=== PATIENT | female | born 1970 | race Hispanic/Latino ===

== ENCOUNTER 2017-04-12 11:39 | Emergency (ER) | payer MEDICAID ==
[2017-04-12 11:47] VITALS: TEMP 97.9
[2017-04-12] MEDS ORDERED: Iohexol 240 (50 ml) ONE (12:04)
[2017-04-12] MEDS ORDERED: Iohexol 240 (50 ml) PO ONE (12:06)
--- NOTE | 2017-04-12 12:12 | ED PDOC ---
HPI: Abdomen Time Seen by Provider: 04/12/17 11:56 Chief Complaint (Nursing): Abdominal Pain Chief Complaint (Provider): abdominal pain History Per: Patient History/Exam Limitations: no limitations Onset/Duration Of Symptoms: Other (chronic ) Outside of [place] travel?: No Location Of Pain/Discomfort: Periumbilical Associated Symptoms: Nausea. denies: Fever, Chills, Vomiting, Diarrhea Additional Complaint(s): Kim Rodriguez is a 46 year old female, with a previous medical history of peptic ulcer disease, celiac disease and bipolar disorder, who presents to the ED with complaints of chronic abdominal pain associated with nausea worsening since this morning. Patient denies any vomiting, diarrhea, fever or chills. PMD: none provided Abnormal Vaginal Bleeding: No Past Medical History Reviewed: Historical Data, Nursing Documentation, Vital Signs Vital Signs: Last Vital Signs Temp 97.9 F 04/12/17 17:02 Pulse 64 04/12/17 17:02 Resp 16 04/12/17 17:02 BP 113/63 04/12/17 17:02 Pulse Ox 98 04/12/17 17:02 - Medical History PMH: Bipolar Disorder Other PMH: celiac disease, peptic ulcer disease - Family History Family History: States: Unknown Family Hx - Home Medications Home Medications: Ambulatory Orders Medication Instructions Recorded Dicyclomine [Dicyclomine HCl] 10 mg PO Q8 #10 cap 04/12/17 Pantoprazole Sodium [Protonix] 40 mg PO DAILY #30 tablet. 04/12/17 - Allergies Allergies/Adverse Reactions: Allergies Allergy/AdvReac Type Severity Reaction Status Date / Time No Known Allergies Allergy Verified 04/12/17 11:41 Review of Systems ROS Statement: Except As Marked, All Systems Reviewed And Found Negative Constitutional: Negative for: Fever, Chills Gastrointestinal: Positive for: Nausea, Abdominal Pain. Negative for: Vomiting , Diarrhea Physical Exam - Reviewed Nursing Documentation Reviewed: Yes Vital Signs Reviewed: Yes - Physical Exam Appears: Positive for: Well, Non-toxic, No Acute Distress Cardiovascular/Chest: Positive for: Regular Rate, Rhythm Respiratory: Positive for: CNT, Normal Breath Sounds Gastrointestinal/Abdominal: Positive for: Bowel Sounds, Soft, Tenderness ( periumbilical). Negative for: Mass, Guarding, Rebound Neurologic/Psych: Positive for: Alert, Oriented - Laboratory Results Result Diagrams: 04/12/17 12:00 04/12/17 12:00 - ECG O2 Sat by Pulse Oximetry: 96 (RA) Pulse Ox Interpretation: Normal Medical Decision Making Medical Decision Making: Initial Impression: Abdominal Pain Initial Plan: * CT abd pelvic w/ PO and IV contrast * labs * urine * urine dipstick * bentyl * omnipaque * reevaluation Scribe Attestation: Documented by Bethany Linares, acting as a scribe for Joshua Martinez MD. Provider Scribe Attestation: All medical record entries made by the Scribe were at my direction and personally dictated by me. I have reviewed the chart and agree that the record accurately reflects my personal performance of the history, physical exam, medical decision making, and the department course for this patient. I have also personally directed, reviewed, and agree with the discharge instructions and disposition. Disposition - Clinical Impression Clinical Impression: Gastritis - Patient ED Disposition Is Patient to be Admitted: No - Disposition Disposition: Routine/Home Disposition Time: 17:29 Condition: FAIR Prescriptions: Dicyclomine [Dicyclomine HCl] 10 mg PO Q8 #10 cap Pantoprazole Sodium [Protonix] 40 mg PO DAILY #30 tablet. Instructions: Gastritis (ED)
[2017-04-12 12:27] LABS: BASO # 0.1 K/uL (0.0-0.2); BASO % 1.1 % (0.0-2.0); EOS # 0.1 K/uL (0.0-0.7); EOS % 1.3 % (0.0-4.0); HEMATOCRIT 41.3 % (34.0-47.0); LYMPH # 1.5 K/uL (1.0-4.3); LYMPH % 23.7 % (20.0-40.0); MEAN CELL VOLUME 92.5 fl (81.0-99.0); MEAN CORPUSCULAR HEMOGLOBIN 31.7 pg (27.0-31.0); MEAN CORPUSCULAR HGB CONC 34.3 g/dL (33.0-37.0); MONO # 0.5 K/uL (0.0-0.8); MONO % 8.4 % (0.0-10.0); NEUT # 4.2 K/uL (1.8-7.0); NEUT % 65.5 % (50.0-75.0); RED CELL DISTRIBUTION WIDTH 13.2 % (11.5-14.5); WHITE BLOOD COUNT 6.5 K/uL (4.8-10.8)
[2017-04-12 12:33] LABS: ALB/GLOB RATIO 1.5 (1.0-2.1); ALKALINE PHOSPHATASE 67 U/L (38-126); ALT/SGPT 153 U/L (9-52); AST/SGOT 197 U/L (14-36); BILIRUBIN,TOTAL 0.7 mg/dl (0.2-1.3); BLOOD UREA NITROGEN 18 mg/dl (7-17); CALCIUM 9.5 mg/dL (8.4-10.2); CARBON DIOXIDE 24 mmol/L (22-30); CHLORIDE 106 mmol/L (98-107); GFR AFRICAN-AMERICAN > 60; GLUCOSE,RANDOM 99 mg/dL (65-105); POTASSIUM 4.2 MMOL/L (3.6-5.0); SODIUM 140 mmol/l (132-148)
[2017-04-12] MEDS ORDERED: Iohexol 300 100 ML IJ ONE (15:59)
[2017-04-12] MEDS ORDERED: Sodium Chloride 0.9% 50 ML IV ONE (16:00)
[2017-04-12 17:05] VITALS: BP 113/63; PULSE 64; RESP 16
--- NOTE | 2017-04-12 17:20 | CT ---
PROCEDURE: CT abdomen pelvis dated 04/12/2017. HISTORY: abd pain COMPARISON: None. TECHNIQUE: Contiguous axial images of the abdomen and pelvis following the oral and intravenous injection of approximately 98 cc Omnipaque 300 contrast material. . . Coronal and Sagittal reformats generated. Radiation dose: Total exam DLP = 1401.39 mGy-cm. This CT exam was performed using one or more of the following dose reduction techniques: Automated exposure control, adjustment of the mA and/or kV according to patient size, and/or use of iterative reconstruction technique. FINDINGS: LOWER THORAX: Small hiatal hernia with slight wall thickening of the distal esophagus that could be due to protrusion gastric mucosa. Esophagitis not excluded. Lung bases clear. No infiltrate effusion or basilar pneumothorax. Heart size within range of normal. No evidence of pericardial effusion. LIVER: Liver is mildly enlarged measuring nearly 19 cm in CC dimension. Mild diffuse fatty hepatic infiltration. There is small elliptical shaped vague area of low attenuation left lobe liver measuring approximately 11 mm too small to characterize though this could represent a small hemangioma. Followup interval could be performed to assess stability. Portal and splenic veins are opacified. GALLBLADDER AND BILE DUCTS: Gallbladder is physiologically distended. . There is a small peripherally calcified gallbladder calculus. PANCREAS: Visualized portions of the pancreas appear grossly unremarkable. SPLEEN: Spleen exhibits normal size and attenuation pattern without mass collection or calcification. ADRENALS: No adrenal lesions. . KIDNEYS AND URETERS: Kidneys demonstrate symmetric nephrograms. No evidence of nephrolithiasis or hydronephrosis. BLADDER: The urinary bladder is incompletely distended which presumably accounts for thick-walled appearance. Cystitis not excluded. REPRODUCTIVE: Questionable fundal fibroid. APPENDIX: Normal-appearing appendix of best seen on axial image number [id number]. No periappendiceal inflammatory changes. BOWEL: The evaluation of the bowel is limited due to incomplete opacification. The stomach is in the distended with oral contrast material. Visualized loops of small bowel exhibit normal contour and caliber. No evidence of acute mechanical small bowel obstruction. Oral contrast material has extended into the colon to the level of the distal descending/hepatic flexure junction. Moderate amount of stool is seen within the cecum ascending and transverse colon consistent with mild constipation. The main PE PERITONEUM: Unremarkable. No fluid collection. No free air. Small fat containing umbilical hernia. LYMPH NODES: No significant/bulky adenopathy. VASCULATURE: Unremarkable. No abdominal aortic aneurysm. BONES: Minor degenerative spondylosis involving a few lower thoracic and upper segments. The. Mild degenerative spondylosis L5-S1 level noted as well. No acute compression fractures. OTHER FINDINGS: None. IMPRESSION: Small low-attenuation focus left lobe liver as above. This could represent a small hemangioma. Followup interval could be performed to assess stability. Mild fatty hepatic infiltration. Cholelithiasis. Findings suggest constipation. Questionable fundal fibroid. Evaluation of the urinary bladder is limited due to the nondistention. Small fat containing umbilical hernia.
[2017-04-12 17:30] VITALS: O2SAT 96
== END 2017-04-12 18:31 | disposition home or self-care (01) ==
LOC: H.ER 11:39
DX: K29.70 Gastritis, unspecified, without bleeding (principal); Z86.59 Personal history of other mental and behavioral disorders; Z87.11 Personal history of peptic ulcer disease

== ENCOUNTER 2017-04-12 23:17 | Emergency (ER) | payer MEDICAID ==
[2017-04-12 23:20] VITALS: BP 123/78; PULSE 96; RESP 16; O2SAT 100
[2017-04-12 23:21] VITALS: TEMP 98.1
--- NOTE | 2017-04-12 23:51 | ED PDOC ---
HPI: Abdomen Time Seen by Provider: 04/12/17 23:20 Chief Complaint (Nursing): Abdominal Pain Chief Complaint (Provider): abdominal pain History Per: Patient (46 y/o female h/o gastritis/gastric ulcer/celiac sprue recently seen today for abdominal pain 12hours ago. CT demonstrates mild constipation. Patient has h/o fatty liver and mild elevation of LFT noted. Denies any vomiting/diarrhea/fevers/chills. States abdominal pain became worse prior to ED arrival. Patient notes improvement while waiting to be seen by ED but requests medication in ED for assistance. Admits to drinking etoh yesterday. Denies any abdominal surgeries.) Past Medical History Reviewed: Historical Data, Nursing Documentation, Vital Signs Vital Signs: Last Vital Signs Temp 98.1 F 04/12/17 23:18 Pulse 96 H 04/12/17 23:18 Resp 16 04/12/17 23:18 BP 123/78 04/12/17 23:18 Pulse Ox 100 04/12/17 23:56 - Medical History PMH: Bipolar Disorder, Gastritis - Family History Family History: States: Unknown Family Hx - Home Medications Home Medications: Ambulatory Orders Medication Instructions Recorded Dicyclomine [Dicyclomine HCl] 10 mg PO Q8 #10 cap 04/12/17 Docusate Sodium [Colace] 100 mg PO BID #20 capsule 04/12/17 Ranitidine HCl [Zantac 75] 75 mg PO BID PRN #20 tablet 04/12/17 - Allergies Allergies/Adverse Reactions: Allergies Allergy/AdvReac Type Severity Reaction Status Date / Time No Known Allergies Allergy Verified 04/12/17 11:41 Review of Systems ROS Statement: Except As Marked, All Systems Reviewed And Found Negative Gastrointestinal: Positive for: Abdominal Pain. Negative for: Nausea, Vomiting , Diarrhea Physical Exam - Reviewed Nursing Documentation Reviewed: Yes Vital Signs Reviewed: Yes - Physical Exam Appears: Positive for: Well, Non-toxic, No Acute Distress Head Exam: Positive for: ATRAUMATIC, NORMAL INSPECTION, NORMOCEPHALIC Skin: Positive for: Normal Color, Warm, DRY Eye Exam: Positive for: EOMI, Normal appearance, PERRL ENT: Positive for: Normal ENT Inspection Neck: Positive for: Normal, Painless ROM Cardiovascular/Chest: Positive for: Regular Rate, Rhythm Respiratory: Positive for: CNT, Normal Breath Sounds Gastrointestinal/Abdominal: Positive for: Normal Exam, Bowel Sounds, Soft, Other (active bowel sounds). Negative for: Tenderness Back: Positive for: Normal Inspection Extremity: Positive for: Normal ROM Neurologic/Psych: Positive for: Alert, Oriented - ECG O2 Sat by Pulse Oximetry: 100 - Progress ED Course And Treament: CT and bloodwork reviewed from prior visit. patient's medications reviewed with her. Will add zantac 75mg po bid prn severe abdominal pain. Disposition - Clinical Impression Clinical Impression: Gastritis - Patient ED Disposition Is Patient to be Admitted: No - Disposition Disposition: Routine/Home Disposition Time: 23:52 Condition: FAIR Additional Instructions: f/u with your private GI this week Prescriptions: Docusate Sodium [Colace] 100 mg PO BID #20 capsule Ranitidine HCl [Zantac 75] 75 mg PO BID PRN #20 tablet PRN Reason: Pain, Severe (8-10) Instructions: Gastritis (GEN), Diet for Ulcers and Gastritis (ED) Forms: [facility] ED School/Work Excuse
[2017-04-12] MEDS ORDERED: Alum-Mag Hydrox-Simethicone Susp (30 mL) PO ONE (23:55)
== END 2017-04-13 00:10 | disposition home or self-care (01) ==
LOC: H.ER 23:17
DX: K29.70 Gastritis, unspecified, without bleeding (principal); Z86.59 Personal history of other mental and behavioral disorders

== ENCOUNTER 2018-05-12 21:15 | Emergency (ER) | payer MEDICAID ==
[2018-05-12 21:36] VITALS: BMI 36.6
--- NOTE | 2018-05-12 23:03 | ED PDOC ---
Lower Extremity Pain/Injury Time Seen by Provider: 05/12/18 21:45 Chief Complaint (Nursing): Lower Extremity Problem/Injury History Per: Patient Additional Complaint(s): Pt. states earlier today she tripped and fell injuring her R ankle. Denies numbness, tingling, other injury. Past Medical History Reviewed: Historical Data, Nursing Documentation, Vital Signs Vital Signs: Last Vital Signs Temp 98.4 F 05/12/18 21:35 Pulse 89 05/12/18 21:35 Resp 16 05/12/18 21:35 BP 111/71 05/12/18 21:35 Pulse Ox 97 05/12/18 21:35 - Medical History PMH: Bipolar Disorder, Gastritis, Gastrointestinal Ulcer - Family History Family History: States: No Known Family Hx - Home Medications Home Medications: Ambulatory Orders Medication Instructions Recorded Dicyclomine [Dicyclomine HCl] 10 mg PO Q8 #10 cap 04/12/17 Docusate Sodium [Colace] 100 mg PO BID #20 capsule 04/12/17 Ranitidine HCl [Zantac 75] 75 mg PO BID PRN #20 tablet 04/12/17 - Allergies Allergies/Adverse Reactions: Allergies Allergy/AdvReac Type Severity Reaction Status Date / Time No Known Allergies Allergy Verified 04/12/17 11:41 Review of Systems ROS Statement: Except As Marked, All Systems Reviewed And Found Negative Musculoskeletal: Positive for: Foot Pain Physical Exam - Physical Exam Appears: Positive for: Well, Non-toxic, No Acute Distress Skin: Positive for: Normal Color, Warm. Negative for: Rash Eye Exam: Positive for: Normal appearance Respiratory: Negative for: Respiratory Distress Extremity: Positive for: Other (RIGHT LOWER EXT: mild tenderness and swelling on lateral malleolus and on foot just below lateral malleolus on dorsal aspect) - ECG O2 Sat by Pulse Oximetry: 97 - Progress ED Course And Treament: Tylenol 975mg PO, R foot/ankle x-rays ordered. Disposition - Clinical Impression Clinical Impression: Ankle injury - Patient ED Disposition Is Patient to be Admitted: No - Disposition Referrals: Podiatry Clinic [Outside] Disposition: Routine/Home Disposition Time: 00:07 Additional Instructions: Follow up with podiatry clinic for further evaluation. ANIYAH FAIRCHILD, thank you for letting us take care of you today. Your provider was Oni Can MD and you were treated for INTRACTABLE BACK PAIN. The emergency medical care you received today was directed at your acute symptoms. If you were prescribed any medication, please fill it and take as directed. It may take several days for your symptoms to resolve. Return to the Emergency Department if your symptoms worsen, do not improve, or if you have any other problems. Please contact your doctor or call one of the physicians/clinics you have been referred to that are listed on the Patient Visit Information form that is included in your discharge packet. Bring any paperwork you were given at discharge with you along with any medications you are taking to your follow up visit. Our treatment cannot replace ongoing medical care by a primary care provider outside of the emergency department. Thank you for allowing the [facility] team to be part of your care today. If you had an X-Ray or CT scan: A Radiologist will review the ED reading if any change in treatment is needed we will contact you. If you had a blood, urine, or wound culture: It will take several days for the results, if any change in treatment is needed we will contact you. If you had an STI test: It will take 48 hours for the results. Please call after 1 week if you have not heard back. Instructions: Ankle Sprain (DC), How to Use Crutches Forms: [employer] (Danish)
--- NOTE | 2018-05-12 23:48 | RAD ---
EXAM: XR Right Foot Complete, 3 or More Views EXAM DATE/TIME: 05/12/2018 10:18 PM CLINICAL HISTORY: 47 years old, female; Injury or trauma; Fall; Initial encounter; Blunt trauma; Foot; Right TECHNIQUE: Frontal, lateral and oblique views of the right foot. COMPARISON: There are no prior studies for comparison. FINDINGS: Bones/joints: There is no soft tissue swelling or soft tissue calcification. Flexion limits evaluation of the phalanges of the third, fourth and fifth digits. There are no fractures or dislocations. Bone mineralization is normal. Joint spaces are maintained. There are degenerative changes at the talonavicular joint. Soft tissues: see above IMPRESSION: No fracture
--- NOTE | 2018-05-12 23:50 | RAD ---
EXAM: XR Right Ankle Complete, 3 or More Views EXAM DATE/TIME: 05/12/2018 10:18 PM CLINICAL HISTORY: 47 years old, female; Injury or trauma; Fall; Initial encounter; Blunt trauma; Ankle; Right TECHNIQUE: Frontal, lateral and oblique views of the right ankle. COMPARISON: There are no prior studies for comparison. FINDINGS: Bones/joints: There is lateral soft tissue swelling. There is no effusion in the ankle joint. There are no fractures or dislocations. There degenerative changes at the talonavicular joint. Soft tissues: see above IMPRESSION: Soft tissue swelling, no fracture or effusion
[2018-05-13 00:23] VITALS: BP 116/78; PULSE 81; RESP 17; TEMP 98.2; O2SAT 99
== END 2018-05-13 00:14 | disposition home or self-care (01) ==
LOC: H.ER 21:15 → H.ERHOLD 22:09 → UNDOADMOB 22:09 → H.ER 05-13 00:14
DX: S99.911A Unspecified injury of right ankle, initial encounter (principal); W19.XXXA Unspecified fall, initial encounter